=== PATIENT | female | born 1990 | race Caucasian/White ===

== ENCOUNTER 2019-06-15 06:33 | Day surgery (SDC) | payer BC ==
--- NOTE | 2019-06-15 06:30 | PCM.PREANE ---
Preanesthetic Assessment - Anesthesia/Transfusion/Family Hx Anesthesia History: Prior Anesthesia Reaction (nausea) Family History of Anesthesia Reaction: No Transfusion History: No Prior Transfusion(s) - Review of Systems General: No Symptoms Pulmonary: Cough (from cold 2 week ago) Cardiovascular: No Symptoms Gastrointestinal: No Symptoms Neurological: No Symptoms - Physical Assessment NPO Status Date: 06/14/19 NPO Status Time: 00:00 Height: 1.57 m Weight: 64.183 kg ASA Class: 2 Mental Status: Alert & Oriented x3 Airway Class: Mallampati = 1 Dentition: Reports: Normal Dentition Thyro-Mental Finger Breadths: 3 Mouth Opening Finger Breadths: 3 ROM/Head Extension: Full Lungs: Clear to Auscultation, Normal Respiratory Effort Cardiovascular: Regular Rate, Regular Rhythm - Lab Values: Laboratory Last Values MRSA (PCR) Negative 06/06/19 15:35 - Allergies Allergies/Adverse Reactions: Allergies Allergy/AdvReac Type Severity Reaction Status Date / Time No Known Allergies Allergy Verified 06/14/19 14:28 - Blood Blood Available: No Product(s) Available: None - Anesthesia Plan Pre-Op Medication Ordered: None - Acknowledgements Anesthesia Type Planned: General Anesthesia, Regional Block (femoral block at adductor canal for post-op pain control) Pt an Appropriate Candidate for the Planned Anesthesia: Yes Alternatives and Risks of Anesthesia Discussed w Pt/Guardian: Yes Pt/Guardian Understands and Agrees with Anesthesia Plan: Yes PreAnesthesia Questionnaire Cardiovascular History: Reports: None Respiratory History: Reports: None Gastrointestinal History: Reports: None, GERD Genitourinary History: Reports: None [employer]S History: Reports: Ectopic Musculoskeletal History: Reports: Other (See Below) Other Musculoskeletal History: left knee lateral meniscus tear Neurological History: Reports: None Psychiatric History: Reports: None Endocrine/Metabolic History: Reports: None Hematologic History: Reports: None Immunologic History: Reports: None Oncologic (Cancer) History: Reports: None Dermatologic History: Reports: Psoriasis - Past Surgical History Head Surgeries/Procedures: Reports: None HEENT Surgical History: Reports: Oral Surgery Cardiovascular Surgical History: Reports: None Respiratory Surgical History: Reports: None GI Surgical History: Reports: None Female Surgical History: Reports: Breast Implant Male Surgical History: Reports: None Endocrine Surgical History: Reports: None Neurological Surgical History: Reports: None Musculoskeletal Surgical History: Reports: None Oncologic Surgical History: Reports: None Dermatological Surgical History: Reports: None - SUBSTANCE USE Smoking Status *Q: Former Smoker Tobacco Use Within Last Twelve Months: Cigarettes Second Hand Smoke Exposure: No Days Per Week of Alcohol Use: 1 Number of Drinks Per Day: 2 Total Drinks Per Week: 2 Recreational Drug Use History: No - HOME MEDS Home Medications: Home Meds Acetaminophen [Tylenol] 650 mg PO Q4H PRN 06/14/19 [History] Acetaminophen/HYDROcodone [[place] 325-5 MG] 1 - 2 tab PO Q6H PRN #40 tablet 06/15 [Rx] Aspirin 325 mg PO BID #84 tab 06/15/19 [Rx] Cyclobenzaprine [Flexeril] 10 mg PO BID PRN #20 tab 06/15/19 [Rx] - CURRENT (IN HOUSE) MEDS Current Meds: Current Medications Epinephrine HCl (Adrenalin) 3 mg .XX ONETIME BERNICE Stop: 06/15/19 12:00 Lactated Ringer's (Ringers, Lactated) 1,000 mls @ 125 mls/hr IV ASDIRECTED BERNICE Stop: 06/15/19 23:00 Lidocaine/Sodium Bicarbonate (Buffered Lidocaine 1% In Ns 8.4%) 0.25 ml IDERM ONETIME PRN PRN Reason: Prior to IV Start Stop: 06/15/19 18:00 Sodium Chloride (Saline Flush) 10 ml FLUSH ASDIRECTED PRN PRN Reason: Keep Vein Open Stop: 06/15/19 18:00 Discontinued Medications Cefazolin Sodium (Ancef) Confirm Administered Dose 2 gm .ROUTE .STK-MED ONE Stop: 06/15/19 06:03 Fentanyl (Sublimaze) Confirm Administered Dose 250 mcg .ROUTE .STK-MED ONE Stop: 06/15/19 06:03 Lidocaine HCl (Xylocaine-Mpf 1%) Confirm Administered Dose 4 mls @ as directed .ROUTE .STK-MED ONE Stop: 06/15/19 06:03 Midazolam HCl (Versed 1 Mg/Ml) Confirm Administered Dose 2 mg .ROUTE .STK-MED ONE Stop: 06/15/19 06:03 Ondansetron HCl (Zofran) Confirm Administered Dose 4 mg .ROUTE .STK-MED ONE Stop: 06/15/19 06:02 Propofol (Diprivan 20 Ml) Confirm Administered Dose 200 mg .ROUTE .STK-MED ONE Stop: 06/15/19 06:03 Rocuronium [place] (Zemuron) Confirm Administered Dose 50 mg .ROUTE .EnerTracMED ONE Stop: 06/15/19 06:02 Ropivacaine (Naropin 0.5%) Confirm Administered Dose 30 ml .ROUTE .Aibo-MED ONE Stop: 06/15/19 06:16
[~2019-06-15 06:33] MED LIST: Lactated Ringers 1,000 ML IV SCH; Lidocaine 1% 4 ML ONE; Lidocaine 1%/Sod Bicarbonate in NS 8.4% 1 ML Syringe IDERM PRN; Midazolam 1 MG/ML 2 ML SDV ONE; Ondansetron 4 MG/2 ML SDV ONE; Propofol 200 MG/20 ML SDV ONE; Rocuronium 50 MG/5 ML Vial ONE; Ropivacaine 0.5% 5 MG/ML 30 ML SDV ONE; Sodium Chloride 0.9% 10 ML Syringe FLUSH PRN; ceFAZolin 1 GM Vial ONE; fentaNYL 250 MCG/5 ML SDV ONE
[2019-06-15] MEDS ORDERED: Scopolamine 1.5 MG Transdermal Patch TOP ONE (06:54)
[2019-06-15] MEDS ORDERED: EPINEPHrine 1 MG/ML 30 ML MDV SCH (07:00)
[2019-06-15] MEDS ORDERED: Propofol 200 MG/20 ML SDV ONE ×4 (07:19→08:27)
[2019-06-15] MEDS ORDERED: Bupivacaine 0.25% 10 ML SDV ONE (07:29)
[2019-06-15] MEDS ORDERED: Ketorolac 30 MG/ML SDV ONE (07:32)
[2019-06-15] MEDS ORDERED: Dexamethasone 4 MG/ML 5 ML MDV ONE (07:32)
[2019-06-15] MEDS ORDERED: Lactated Ringers 1,000 ML ONE (07:35)
[2019-06-15] MEDS ORDERED: fentaNYL 250 MCG/5 ML SDV ONE (08:10)
--- NOTE | 2019-06-15 08:56 | PCM.POSTAN ---
POST ANESTHESIA ASSESSMENT - MENTAL STATUS Mental Status: Alert, Oriented - VITAL SIGNS Vital Signs: Last Vital Signs Temp 36.7 C 06/15/19 06:45 Pulse 92 06/15/19 06:45 Resp 16 06/15/19 06:45 BP 120/77 06/15/19 06:45 Pulse Ox 97 06/15/19 06:45 - RESPIRATORY Respiratory Status: Respiratory Rate WNL, Airway Patent, O2 Saturation Stable, Supplemental Oxygen - CARDIOVASCULAR CV Status: Pulse Rate WNL, Blood Pressure Stable - GASTROINTESTINAL GI Status: No Symptoms - PAIN Pain Score: 2 - POST OP HYDRATION Hydration Status: Adequate & Stable - OBSERVATIONS Free Text/Narrative:: no anesthesia complications noted
[2019-06-15] MEDS: fentaNYL 100 MCG/2 ML SDV IVPUSH PRN ×2 (09:25→09:35)
--- NOTE | 2019-06-15 09:25 | PCM.SN ---
- Free Text/Narrative Note: Left selective femoral nerve block at the adductor canal for post-procedure pain control under US guidance requested by Dr. Bonilla. Time Out: 903 Start: 903 End: 914 Chart reviewed. Consent signed. Questions answered. Appropriate monitors applied. Time out performed. Left mid-shaft femur identified with ultrasound, scanning medially of femur, the femoral artery in the adductor canal visualized , and the femoral nerve located laterally to the artery. The skin was prepped lateral to the ultrasound probe with chlorahexadine times two. The 21ga 4 insulated block needle was inserted under direct ultrasound guidance into the adductor canal. 25mL of 0.5% ropivacaine with 1:200,000 epinephrine was injected circumferentially around the nerve with intermittent negative aspiration noted. Patient tolerated the procedure well. Sterile technique noted along with sterile gloves, mask, and sterile probe cover. See picture on progress note and vital signs on nurses notes. Block completed in PACU. Scar Guillen CRNA
[2019-06-15] MEDS ORDERED: diphenhydrAMINE 50 MG/ML SDV IVPUSH ONE (09:45)
[2019-06-15] MEDS ORDERED: diphenhydrAMINE 50 MG/ML SDV ONE (09:47)
[2019-06-15] MEDS ORDERED: Acetaminophen/HYDROcodone 325-5 MG Tab PO PRN (11:18)
--- NOTE | 2019-06-15 12:45 | PCM48HPAN ---
Post Anesthesia Note - EVALUATION WITHIN 48HRS OF ANESTHETIC Vital Signs in Normal Range: Yes Patient Participated in Evaluation: Yes Respiratory Function Stable: Yes Airway Patent: Yes Cardiovascular Function Stable: Yes Hydration Status Stable: Yes Pain Control Satisfactory: Yes Nausea and Vomiting Control Satisfactory: Yes Mental Status Recovered: Yes Vital Signs: Last Vital Signs Temp 36.9 C 06/15/19 11:20 Pulse 78 06/15/19 11:20 Resp 16 06/15/19 11:20 BP 113/75 06/15/19 11:20 Pulse Ox 99 06/15/19 11:20 - COMMENTS/OBSERVATIONS Free Text/Narrative:: no anesthesia complications noted
--- NOTE | 2019-06-19 08:48 | CR ---
Left knee: Single fluoroscopic spot view was obtained of the left knee utilizing C-arm device.. Comparison: Prior left knee MRI of 04/04/19. Findings: Surgical change noted from ACL repair. Fluoroscopy time is given as 2.9 seconds. Impression: 1. Procedural study as noted above. Diagnostic code #2 I agree with preliminary report from [facility], finalized on 06/15/19, 9:40 AM Central Time
--- NOTE | 2019-06-20 09:43 | PCM.OPNOTE ---
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
--- NOTE | 2019-06-20 11:17 | OR ---
DATE OF OPERATION: 06/15/2019 SURGEON: Eduardo Bonilla MD OPERATION PERFORMED: Left knee video arthroscopy with lateral meniscus repair and ACL allograft reconstruction. 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 ANESTHESIA: Technique general LMA with local and regional femoral block. ANESTHESIA PROVIDER: Zackary Mirza. WELL SERVICE PUMP EQUIPMENT OPERATOR: Emma Barth PA-C and Shelia Larose LPN. ESTIMATED BLOOD LOSS: 5 mL. COMPLICATIONS: None. CONDITION: Stable. DESCRIPTION OF PROCEDURE: Patient was identified in the preop holding area. Proper site was marked and identified by the surgeon. The patient was taken back to the operating theater where after adequate anesthesia, the patient's right lower extremity was placed in a well leg mcgee. Left lower extremity had a nonsterile tourniquet applied and then a C-clamp mcgee was applied and the foot of the bed was lowered. Left lower extremity was sterilely prepped and draped in the usual sterile fashion. OR time-out was performed. The patient received 2 g of IV Ancef. Left lower extremity was exsanguinated. Tourniquet was insufflated to 250 mmHg. Standard anterolateral portal incision was made, and scope trocar was introduced. 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 Attention was turned to the medial compartment. With the use of a spinal needle, anteromedial portal was then created. Medial compartment showed no signs of meniscal damage and no chondromalacia. ACL was found to be completely disrupted in the notch off the femoral side. Lateral compartment showed a small radial tear noted in the posterior portion of the lateral meniscus. At this time, it was very small and stable, so it was decided we would do a lateral meniscus repair. A rasp was used in the tear, and then, one all-inside [employer] meniscal repair kit was then used to had adequate watertight repair of the meniscal tear. At this time, the allograft was opened on the back table and was prepared by Emma Barth PA-C, and Shelia Larose LPN. Total graft length of 80 mm for anterior tibialis tendon. It was whipstitched on one end with a FiberWire and the other side had the Endobutton construction configuration placed on it for the femoral side. While this was being done, I cleaned out the notch of all old ACL fibers. The guide then for the tibial tunnel was placed at 55 degrees. Incision was made on the tibial side and a guide pin was placed up into the old footprint at the center portion of the old footprint of the ACL. A 9 mm reamer was then used on the tibial side. Next, attention was turned to the femoral side. 105-degree flipcutter guide for the Arthrex technique was then placed on the very posterior portion of the lateral femoral condyle with only a 2-mm rim posteriorly. This was then drilled and a 25-mm tunnel was drilled into the femoral side. Once this was prepared and all the loose bony fragments were irrigated out, the wire was placed down through the femoral side and then down to the tibial tunnel and the graft was shuttled up. The Endobutton was then flipped on the femoral side. It was found to be adequately in place and against bone on C-arm fluoroscopy. The graft was then shuttled up into the femoral tunnel and was found to have good seating in both the femoral and tibial tunnel. The patient's knee was brought through a cycled range of motion, and the patient had full knee flexion and extension with no signs of impingement. At this time, a 4.5 Zane fully- threaded screw was placed with a washer on the tibial side and then this was tightened after the suture limbs for the #2 FiberWire on the tibial side were tied to it for post. It was found to have negative anterior drawer and Mal's under direct visualization. The graft was in good position. At this time, excess saline was drained from the knee. 2-0 Vicryl and Monocryl was used for closure of the incisions. The patient was placed in a sterile soft dressing and a hinged knee brace locked in extension and sent to the PACU in stable condition. YAJAIRA /[id number]
== END 2019-06-15 11:51 | disposition home or self-care (01) ==
LOC: JD.SDS 06:33
PROVIDERS: ATTEND Orthopaedic Surgery
DX: S83.512A Sprain of anterior cruciate ligament of left knee, initial encounter (principal); S83.282A Other tear of lateral meniscus, current injury, left knee, initial encounter; M22.42 Chondromalacia patellae, left knee; G89.18 Other acute postprocedural pain; X58.XXXA Exposure to other specified factors, initial encounter; Z87.891 Personal history of nicotine dependence
CPT/HCPCS: 29882; 29888; 64447; 76000; 81025; 87641; A9270; C1713; C1762; J0171; J0690; J1100; J1200; J1885; J2001; J2250; J2405; J2704; J2795; J3010; J3490; J7120; 01400; 64450

== ENCOUNTER 2022-11-03 05:39 | Emergency (ER) | payer OTHER ==
[2022-11-03] MEDS ORDERED: Amoxicillin/Clavulanate K 875-125 MG Tab PO STA (06:13)
== END 2022-11-03 06:35 | disposition home or self-care (01) ==
LOC: JD.ED 05:39
DX: H00.014 Hordeolum externum left upper eyelid (principal); Z79.899 Other long term (current) drug therapy; Z86.16 Personal history of COVID-19
CPT/HCPCS: 99283; A9270; 99282